=== PATIENT | female | born 1980 | race Caucasian/White ===

== ENCOUNTER 2017-06-06 16:41 | Emergency (ER) | payer OTHER ==
[~2017-06-06] VITALS: Ht 162.5 cm; Wt 117.9 kg
[~2017-06-06 16:41] MED LIST: ALBUTEROL0.09 MG/A2 INH; FERROUS SULFATE27 MG PO; FLEXERIL5 MG PO; PREDNICOT20 MG PO; PRENATAL1 TA1 PO; TESSALON PERLE200 MG PO; TOPAMAX50 MG PO; VITAMIN D5000 I2 PO; ZANTAC150 MG PO; ZITHROMAX Z PA250 MG PO
[2017-06-06 17:15] LABS: BASO % 0.4 % (0.0-1.0); EOS # 0.2 10*3/uL (0.0-0.4); EOS % 2.3 % (1.0-4.0); HEMATOCRIT 34.5 % (37.0-47.0); HEMOGLOBIN 11.9 g/dl (12.0-16.0); MEAN CORPUSCULAR HGB 33.8 pg (27.0-31.0); MEAN CORPUSCULAR HGB CONC 34.5 g/dl (33.0-37.0); MEAN PLATELET VOLUME 10.5 fl (9.6-12.3); MONO # 0.5 10*3/uL (0.1-1.0); NEUT # 6.7 10*3/uL (2.3-7.9); NEUT % 70.7 % (47.0-73.0); NUCLEATED RED BLOOD CELL 0.2 % (0.0-0.0); PLATELET COUNT AUTOMATED 281 10*3/uL (130-400); RED BLOOD COUNT 3.52 10*6/uL (4.10-5.10); RED CELL DISTRI WIDTH 15.1 % (0-14.5); WHITE BLOOD COUNT 9.5 10*3/uL (4.8-10.8)
[2017-06-06 17:31] LABS: ALBUMIN 3.4 gm/dl (3.1-4.5); ALKALINE PHOSPHATASE 67 U/L (45-117); BUN 9 mg/dl (7-24); CHLORIDE 102 mmol/L (98-107); CREATININE 0.57 mg/dL (0.55-1.02); LIPASE 134 U/L (73-393); MAGNESIUM 2.4 mg/dL (1.5-2.1); SGOT/AST 39 IU/L (3-35); SGPT/ALT 38 U/L (12-78); SODIUM 138 mmol/L (136-145)
[2017-06-06 17:35] LABS: BETA-HCG, QUANT < 1.0 mIU/mL (1-3)
== END 2017-06-06 23:12 | disposition home or self-care (01) ==
LOC: ED 16:41
PROVIDERS: Emergency Medicine
DX: S80.212A Abrasion, left knee, initial encounter (principal); M25.511 Pain in right shoulder; M25.562 Pain in left knee; Z88.1 Allergy status to other antibiotic agents; Z88.8 Allergy status to other drugs, medicaments and biological substances; Z79.899 Other long term (current) drug therapy; V43.62XA Car passenger injured in collision with other type car in traffic accident, initial encounter; Y92.488 Other paved roadways as the place of occurrence of the external cause; Y99.8 Other external cause status; Y93.89 Activity, other specified